=== PATIENT | male | born 1990 | race Caucasian/White ===

== ENCOUNTER 2018-09-03 21:25 | Emergency (ER) | payer MEDICAID ==
[~2018-09-03] VITALS: Ht 180.3 cm; Wt 127.3 kg
[2018-09-03] MEDS ORDERED: ACET1TAB55 PO (21:35)
[2018-09-03] MEDS ORDERED: AMOX500C PO (21:35)
[2018-09-04] MEDS ORDERED: ACETAMINOPHEN 325 MG TAB PO ONE (00:30)
[2018-09-04] MEDS ORDERED: LEVA750T7 PO (01:30)
[2018-09-04] MEDS ORDERED: PRED20TA PO (01:30)
[2018-09-04] MEDS ORDERED: IBUPROFEN 800 MG TAB PO ONE (01:30)
[2018-09-04] MEDS ORDERED: predniSONE 20 MG TAB PO ONE (01:30)
[2018-09-04] MEDS ORDERED: LevoFLOXacin 750 MG TABLET PO ONE (01:30)
[2018-09-04 02:08] VITALS: BP 134/86
--- NOTE | 2018-09-04 09:01 | REP ---
Chest x-ray: Two views. History: Cough and fever. Comparison study: July 31, 2013. Findings: There is mild linear plate-like atelectasis at the left base overlying the left hemidiaphragm. The lungs are exposed at a lesser level of inspiration. Lung valderrama are otherwise clear. Pleural angles are sharp. Heart is not enlarged. Impression: Plate-like atelectasis left base. Lesser level of inspiration. Otherwise negative. Electronically Signed by Izaiah Kapadia MD 09/04/2018 08:53 A
== END 2018-09-04 02:18 | disposition home or self-care (01) ==
LOC: M ED 21:25
DX: J40 Bronchitis, not specified as acute or chronic (principal)

== ENCOUNTER → 2019-02-14 | Outpatient (CLI) | payer MEDICAID, OTHER ==
[~2019-02-14] MED LIST: ACET1TAB55 PO; AMOX500C PO; LEVA750T7 PO; PRED20TA PO
--- NOTE | 2019-02-14 10:38 | REPVR ---
PROCEDURE INFORMATION: Exam: CT Maxillofacial Without Contrast, Sinus Exam date and time: 02/14/2019 10:07 AM Age: 28 years old Clinical indication: Condition or disease; Other: Chronic sinusitus; Additional info: Chronic sinusitis TECHNIQUE: Imaging protocol: CT Maxillofacial without contrast. Focus on the sinuses. Radiation optimization: All CT scans at this facility use at least one of these dose optimization techniques: automated exposure control; mA and/or kV adjustment per patient size (includes targeted exams where dose is matched to clinical indication); or iterative reconstruction. COMPARISON: CT Maxilofacial w/out contrast 01/27/2011 3:25 PM FINDINGS: Frontal sinuses: Normal. No air-fluid levels. Ethmoid air cells: Normal. No air-fluid levels. Sphenoid sinuses: Normal. No air-fluid levels. Maxillary sinuses: Normal. No air-fluid levels. Ostiomeatal units are patent. Orbits: Orbits are normal. Globes are unremarkable. Nasal cavity/Septum: There is an S-shaped nasal septum. There is a large left oriented nasal septal spur. Soft tissues: Unremarkable. Bones/joints: Unremarkable. IMPRESSION: 1. There is an S-shaped nasal septum. 2. There is a large left oriented nasal septal spur. Electronically signed by: Juancarlos Woodard On 02/14/2019 10:38:00 AM
== END ==
LOC: M RAD 09:59
PROVIDERS: ATTEND Nurse Practitioner Family
DX: J34.89 Other specified disorders of nose and nasal sinuses (principal); J32.9 Chronic sinusitis, unspecified; J31.0 Chronic rhinitis

== ENCOUNTER → 2019-03-15 | Outpatient (REF) | payer OTHER ==
[2019-03-15 17:55] LABS: APPEARANCE, URINE CLEAR (CLEAR); BACTERIA, URINE AUTO NEGATIVE (NEGATIVE); BILIRUBIN, URINE AUTO NEGATIVE (NEGATIVE); BLOOD, URINE BLOOD NEGATIVE (NEGATIVE); COLOR, URINE YELLOW (YELLOW); GLUCOSE, URINE (UA) AUTO NEGATIVE (NEGATIVE); KETONE, URINE AUTO NEGATIVE (NEGATIVE); LEUKOCYTE ESTERASE, URINE AUTO NEGATIVE (NEGATIVE); NITRITE, URINE AUTO NEGATIVE (NEGATIVE); PROTEIN, URINE AUTO NEGATIVE (NEGATIVE); RBC, URINE AUTO 0 /HPF (0-3); SPECIFIC GRAVITY URINE AUTO 1.023 (1.002-1.035); SQUAMOUS EPITHELIAL CELL UR AU 0 /HPF (0-6); UROBILINOGEN, URINE AUTO 0.2 mg/dL (0.0-2.0); WBC, URINE AUTO 2 /HPF (0-3)
== END ==
LOC: M LAB REF 16:30
PROVIDERS: ATTEND Physician Assistant Medical
DX: N39.0 Urinary tract infection, site not specified (principal)

== ENCOUNTER 2020-05-02 21:17 | Emergency (ER) | payer OTHER ==
[~2020-05-02] VITALS: Ht 175.3 cm; Wt 142.7 kg
[2020-05-02 21:19] VITALS: BP 149/105
[2020-05-02] MEDS ORDERED: LIDOCAINE 5% TOP ONE (22:05)
[2020-05-02] MEDS ORDERED: LIDOCAINE W/EPINEPHRINE 1% 20ML VIAL SC ONE (22:05)
[2020-05-02] MEDS ORDERED: NORCO 5/325MG TABLET (BULK FOR ED) PO ONE (22:25)
[2020-05-02] MEDS ORDERED: PROC1CRE TOP (22:28)
[2020-05-03] MEDS ORDERED: MIRA3350 PO (09:12)
[2020-05-03] MEDS ORDERED: PERC5TAB12 PO (09:12)
[2020-05-03] MEDS ORDERED: COLA100C5 PO (09:12)
== END 2020-05-02 22:42 | disposition home or self-care (01) ==
LOC: M ED 21:17
DX: K64.8 Other hemorrhoids (principal); E66.9 Obesity, unspecified; Z77.098 Contact with and (suspected) exposure to other hazardous, chiefly nonmedicinal, chemicals; Z79.899 Other long term (current) drug therapy

== ENCOUNTER 2020-05-03 05:49 | Emergency (ER) | payer OTHER ==
[~2020-05-03] VITALS: Ht 175.3 cm; Wt 174.6 kg
[~2020-05-03 05:49] MED LIST changes: +PROC1CRE TOP
[2020-05-03] MEDS ORDERED: NS 1,000 ML IV ONE (06:20)
[2020-05-03 06:30] LABS: HEMATOCRIT 39.8 % (42.0-52.0); HEMOGLOBIN 12.5 g/dl (13.5-17.5); MEAN CORPUSCULAR HEMOGLOBIN 25.8 pg (27.0-33.0); MEAN CORPUSCULAR HGB CONC 31.4 g/dl (32.0-36.5); MEAN CORPUSCULAR VOLUME 82.1 fl (80.0-96.0); PLATELET COUNT, AUTOMATED 226 10^3/uL (150-450); RED BLOOD COUNT 4.85 10^6/uL (4.30-6.10); WHITE BLOOD COUNT 7.9 10^3/uL (4.0-10.0)
[2020-05-03 06:35] LABS: INR 0.94; PARTIAL THROMBOPLASTIN TIME 28.3 SECONDS (24.2-38.5); PROTHROMBIN TIME 12.8 SECONDS (12.5-14.3)
[2020-05-03 06:38] LABS: BLOOD UREA NITROGEN 14 MG/DL (7-18); CALCIUM LEVEL 8.3 MG/DL (8.5-10.1); CARBON DIOXIDE LEVEL 23 MEQ/L (21-32); CHLORIDE LEVEL 112 MEQ/L (98-107); CREATININE FOR GFR 0.91 MG/DL (0.70-1.30); GLOMERULAR FILTRATION RATE > 60.0 (>60); GLUCOSE, FASTING 97 MG/DL (70-100); POTASSIUM SERUM 4.2 MEQ/L (3.5-5.1); SODIUM LEVEL 142 MEQ/L (136-145)
[2020-05-03] MEDS: LIDOCAINE W/EPINEPHRINE 1% 20ML VIAL SC ONE ×2 (07:14→07:15)
[2020-05-03] MEDS ORDERED: PERCOCET 5MG/325MG TAB PO ONE (08:30)
[2020-05-03] MEDS ORDERED: COLA100C5 PO (09:12)
[2020-05-03] MEDS ORDERED: PERC5TAB12 PO (09:12)
[2020-05-03] MEDS ORDERED: MIRA3350 PO (09:12)
[2020-05-03 09:31] VITALS: BP 145/82
== END 2020-05-03 09:42 | disposition home or self-care (01) ==
LOC: M ED 05:49
DX: K64.8 Other hemorrhoids (principal); D62 Acute posthemorrhagic anemia; Z79.899 Other long term (current) drug therapy

== ENCOUNTER 2020-05-07 09:58 | Emergency (ER) | payer OTHER ==
[~2020-05-07] VITALS: Ht 175.3 cm; Wt 142.3 kg
[~2020-05-07 09:58] MED LIST changes: +COLA100C5 PO; +MIRA3350 PO; +PERC5TAB12 PO
[2020-05-07] MEDS ORDERED: LIDOCAINE 4% CREAM 5GM (LMX4) TOP ONE (10:30)
[2020-05-07] MEDS ORDERED: IBUP-1022 PO (11:14)
[2020-05-07 11:18] VITALS: BP 135/79
== END 2020-05-07 11:36 | disposition home or self-care (01) ==
LOC: M ED 09:58
DX: K64.8 Other hemorrhoids (principal)

== ENCOUNTER → 2021-01-14 | Outpatient (REF) | payer OTHER ==
[~2021-01-14] MED LIST changes: +IBUP-1022 PO
== END ==
LOC: M LAB REF 16:25
PROVIDERS: ATTEND Physician Assistant Medical
DX: R05.9 Cough, unspecified (principal)

== ENCOUNTER → 2021-01-16 | Outpatient (CLI) | payer OTHER ==
--- NOTE | 2021-01-16 14:50 | REP ---
INDICATION: ACUTE BRONCHITIS. COMPARISON: 09/04/2018 TECHNIQUE: PA and lateral FINDINGS: Once again, there are plate like curvilinear densities in the left lung base status quo. Lung valderrama are otherwise clear and unchanged. The cardiomediastinal silhouette is unchanged. The heart is not enlarged. The osseous structures stable and intact. IMPRESSION: No change from the prior exam with findings as described above. <Electronically signed by Dl Fitch > 01/16/21 [id number]
== END ==
LOC: M WUC 13:51
PROVIDERS: ATTEND Physician Assistant
DX: J20.9 Acute bronchitis, unspecified (principal)

== ENCOUNTER → 2021-11-08 | Outpatient (REF) | payer OTHER | LOC: M LAB REF 21:16 | PROVIDERS: ATTEND Physician Assistant | DX: B34.9 Viral infection, unspecified (principal) ==

== ENCOUNTER → 2023-01-01 | Outpatient (CLI) | payer OTHER | LOC: M PLARAD 10:32 | PROVIDERS: ATTEND Physician Assistant Medical | DX: G44.029 Chronic cluster headache, not intractable (principal) ==

== ENCOUNTER → 2023-06-05 | Outpatient (CLI) | payer OTHER ==
[~2023-06-05] MED LIST changes: +PROHANCE 279.3MG/ML 15ML VIAL As Ordered ONE; +PROHANCE 279.3MG/ML 5ML VIAL As Ordered ONE
== END ==
LOC: M RAD 12:57
PROVIDERS: ATTEND Physician Assistant
DX: G45.3 Amaurosis fugax (principal)
CPT/HCPCS: 70543; 70553; A9576

== ENCOUNTER → 2023-12-24 | Outpatient (REF) | payer OTHER ==
[~2023-12-24] MED LIST changes: -PROHANCE 279.3MG/ML 15ML VIAL As Ordered ONE; -PROHANCE 279.3MG/ML 5ML VIAL As Ordered ONE
== END ==
LOC: M LAB REF 16:30
PROVIDERS: ATTEND Nurse Practitioner Family
DX: J06.9 Acute upper respiratory infection, unspecified (principal); Z20.828 Contact with and (suspected) exposure to other viral communicable diseases